=== PATIENT | male | born 1940 | race Hispanic/Latino ===

== ENCOUNTER 2017-10-27 07:06 | Emergency (ER) | payer MEDICARE | END 2017-10-27 07:29 | disposition home or self-care (01) | LOC: EDH 07:06 | DX: H61.23 Impacted cerumen, bilateral (principal); E07.9 Disorder of thyroid, unspecified; E78.5 Hyperlipidemia, unspecified; Z98.890 Other specified postprocedural states | CPT/HCPCS: 99281 ==

== ENCOUNTER → 2018-11-21 | Outpatient (CLI) | payer MEDICARE | END | disposition home or self-care (01) | LOC: OIH 10:16 | PROVIDERS: ATTEND Family Medicine | DX: M19.031 Primary osteoarthritis, right wrist (principal); M19.041 Primary osteoarthritis, right hand | CPT/HCPCS: 73110; 73130 ==

== ENCOUNTER 2023-05-14 16:45 | Emergency (ER) | payer OTHER, MEDICARE ==
[~2023-05-14] VITALS: Ht 149.9 cm; Wt 59.9 kg
[2023-05-14 17:11] LABS: HEMATOCRIT 40.9 % (42-54); MEAN CORPUSCULAR HGB CONC 35.5 g/dL (32.0-36.0); MEAN CORPUSCULAR VOLUME 93.2 fL (79-99); RED BLOOD CELL COUNT(AUTO) 4.39 MIL/uL (4.50-6.20); RED CELL DISTRIBUTION WIDTH 12.8 % (11.0-15.5); WHITE BLOOD COUNT (AUTO) 6.7 K/uL (4.8-10.8)
[2023-05-14 17:22] LABS: CREATININE 1.1 mg/dL (0.5-1.5); POTASSIUM 3.6 mmol/L (3.5-5.1)
[2023-05-14 17:45] LABS: ADD UA MICROSCOPIC YES; APPEARANCE,URINE CLEAR (CLEAR); BILIRUBIN,URINE NEGATIVE (NEGATIVE); COLOR,URINE YELLOW (YELLOW); GLUCOSE, URINE (UA) NEGATIVE (NEGATIVE); KETONES,URINE 5 mg/dL (NEGATIVE); LEUKOCYTE ESTERASE ,URINE NEGATIVE Leu/uL (NEGATIVE); NITRATE,URINE NEGATIVE (NEGATIVE); PROTEIN,URINE NEGATIVE (NEGATIVE); UROBILINOGEN,URINE 0.2 mg/dL (0.2-1.0)
[2023-05-14 17:47] LABS: MUCUS,URINE RARE LPF (None Seen)
[2023-05-14 20:47] LABS: INFLUENZA TYPE A Negative For Type A (NEGATIVE); INFLUENZA TYPE B Negative For Type B (NEGATIVE)
[2023-05-14 21:04] LABS: SARS-CoV-2, RNA, NAAT NEGATIVE SARS CoV-2 (NEGATIVE)
[2023-05-14] MEDS ORDERED: IBUP-1493 PO (21:52)
[2023-05-14] MEDS ORDERED: ONDA-104 PO (21:52)
[2023-05-14 21:54] VITALS: BP 114/55; PULSE 60; RESP 17; O2SAT 98
== END 2023-05-14 22:31 | disposition home or self-care (01) ==
LOC: EDH 16:45
DX: B34.9 Viral infection, unspecified (principal); E86.0 Dehydration; E03.9 Hypothyroidism, unspecified; E78.00 Pure hypercholesterolemia, unspecified; Z20.822 Contact with and (suspected) exposure to COVID-19
CPT/HCPCS: 99285; 71045; 87635; 84484; 80048; 85027; 87804 ×2; 81001; 36415; 93005; C9803